=== PATIENT | female | born 2000 | race African-American/Black ===

== ENCOUNTER 2018-01-30 17:32 | Emergency (ER) | payer SELFPAY ==
[~2018-01-30] VITALS: Ht 167.6 cm; Wt 68.9 kg
--- NOTE | 2018-01-30 18:00 | NUR ---
PT BIB [facility], C/O ANXIETY 40mins PA, -SI. ALERT AND ORIENTED X 4, VERBALLY RESPONSIVE AND ABLE TO MAKE NEEDS KNOWN. ON ROOM AIR, BREATHING EVENLY AND UNLABORED. DENIES ANY PAIN AT THIS TIME. KEPT COMFORTABLE, WILL COTINUE TO MONITOR ACCORDINGLY.
[2018-01-30 18:11] LABS: BASOPHILS % (AUTO) 0.6 % (0.0-2.0); EOSINOPHILS % (AUTO) 0.4 % (0.0-6.0); HEMATOCRIT 39 % (33-45); HEMOGLOBIN 12.9 g/dL (11.5-14.8); LYMPHOCYTES # (AUTO) 1.2 /CMM (0.8-4.8); LYMPHOCYTES % (AUTO) 23.8 % (20.0-44.0); MEAN CORPUSCULAR HGB CONC 33 g/dl (31.0-36.0); MEAN CORPUSCULAR VOLUME 91 fL (82-100); MONOCYTES # (AUTO) 0.4 /CMM (0.1-1.30); MONOCYTES % (AUTO) 7.9 % (2.0-12.0); NEUTROPHILS # (AUTO) 3.5 /CMM (1.8-8.9); NEUTROPHILS % (AUTO) 67.3 % (43.0-81.0); PLATELET COUNT (AUTO) 304 /CMM (150-450); RED BLOOD CELL COUNT(AUTO) 4.27 MIL/uL (4.0-5.2); WHITE BLOOD COUNT (AUTO) 5.1 K/uL (4.3-11.0)
[2018-01-30] MEDS ORDERED: LORAZEPAM 1 MG TABLET ONE (18:16)
[2018-01-30] MEDS: LORAZEPAM 1 MG TABLET PO ONE (18:19)
[2018-01-30 18:31] LABS: APPEARANCE,URINE SL CLOUDY (CLEAR); BILIRUBIN,URINE NEGATIVE (NEGATIVE); BLOOD, URINE TRACE Ery/uL (NEGATIVE); COLOR,URINE YELLOW (YELLOW); KETONES,URINE NEGATIVE (NEGATIVE); LEUKOCYTE ESTERASE ,URINE NEGATIVE (NEGATIVE); NITRITE, URINE NEGATIVE (NEGATIVE); PROTEIN,URINE 2+ mg/dl (NEGATIVE); UGLUCOSE NEGATIVE (NEGATIVE)
[2018-01-30 18:33] LABS: ALANINE AMINOTRANSFERASE 72 U/L (12-78); ALBUMIN 3.4 g/dL (3.4-5.0); ALCOHOL, BLOOD 14 mg/dL (0-0); ALKALINE PHOSPHATASE 79 U/L (46-116); ASPARTATE AMINOTRANSFERASE 53 U/L (15-37); BILIRUBIN,DIRECT 0.1 mg/dL (0.0-0.2); BILIRUBIN,TOTAL 0.4 mg/dL (0.2-1.0); CALCIUM, SERUM 8.8 mg/dL (8.5-10.1); CARBON DIOXIDE 27 mmol/L (21-32); CHLORIDE 105 mmol/L (98-107); CREATININE 0.9 mg/dL (0.6-1.3); GLUCOSE 78 mg/dL (74-106); POTASSIUM 3.6 mmol/L (3.5-5.1); SODIUM SERUM 142 mmol/L (136-145); TOTAL PROTEIN, SERUM 7.4 g/dL (6.4-8.2); UREA NITROGEN, BLOOD 9 mg/dL (7-18)
[2018-01-30 18:36] LABS: ACETAMINOPHEN < 2 ug/ml (10-30); SALICYLATE < 2.8 mg/dL (2.8-20.0)
[2018-01-30 18:41] LABS: MUCUS,URINE Moderate /LPF (None Seen); SQUAMOUS EPITHELIAL CELL,UR Many /HPF (None Seen)
[2018-01-30 18:42] LABS: BACTERIA,URINE Few /HPF (None Seen); RBC,URINE 0-2 /HPF (0-2); WBC,URINE 0-2 /HPF (0-3)
--- NOTE | 2018-01-30 19:16 | NUR ---
ENDORSED TO DOROTHY FOX FOR GRACE
--- NOTE | 2018-01-30 19:35 | NUR ---
Patient is resting comfortably in bed with eyes closed. Easily aroused. VSS
--- NOTE | 2018-01-30 21:26 | NUR ---
Patient discharged to home in stable condition. Written and verbal after care instructions given. Patient verbalizes understanding of instruction. PT AMBULATORY WITH STEADY GAIT.
[2018-01-30 21:28] VITALS: BP 122/83
== END 2018-01-30 21:32 | disposition home or self-care (01) ==
LOC: ER 17:35
DX: F43.22 Adjustment disorder with anxiety (principal); F12.90 Cannabis use, unspecified, uncomplicated; F32.9 Major depressive disorder, single episode, unspecified
CPT/HCPCS: 36415; 80048-TC; 80076-TC; 80305; 81000-TC; 84703-TC; 85025-TC; A4606; G0480; Z7610

== ENCOUNTER 2019-04-18 00:05 | Emergency (ER) | payer SELFPAY ==
[~2019-04-18] VITALS: Ht 163.8 cm; Wt 65.8 kg
--- NOTE | 2019-04-18 00:31 | NUR ---
BIBAURELIAPD. TO ER BED 12. INTOXICATED - ADMITS TO DRINKING. NO RESP DISTRESS/ AMBULATORY. BROUGHT IN FOR FOUND WANDERING IN AN APT COMPLEX EXHIBITING WEIRD BEHAVIOR AND VERBALIZING THAT "SHE IS FEELING HURTING OTHER". UPON ASSESSMENT, PT DENIES SI AND HI, STATES" I ONNLY SAID THAT SO THEY DONT BRING ME TO GROUP HOME". DENIES HALLUCINATIONS. PT IS GOWN AND BELONGING KEPT . 1:1 SITTER AT BEDSIDE. MD AT BEDSIDE FOR EVAL.
[2019-04-18] MEDS ORDERED: IV D5/ 0.9% NACL 1,000 ML IV ONE (00:34)
--- NOTE | 2019-04-18 00:50 | NUR ---
IV LINE OBTAINED ON THE R AC 20G. BLOOD DRAWN, URINE COLLECTEDAND GIVEN TO TECHNICAL ILLUSTRATOR AT BEDSIDE. FOOD AND DRINK PROVIDED.
[2019-04-18 00:51] LABS: BASOPHILS # (AUTO) 0.1 /CMM (0.0-0.2); EOSINOPHILS % (AUTO) 0.2 % (0.0-6.0); HEMATOCRIT 44 % (33-45); HEMOGLOBIN 14.7 g/dL (11.5-14.8); LYMPHOCYTES # (AUTO) 3.7 /CMM (0.8-4.8); LYMPHOCYTES % (AUTO) 61.6 % (20.0-44.0); MEAN CORPUSCULAR HGB CONC 33 g/dl (31.0-36.0); MEAN CORPUSCULAR VOLUME 92 fL (82-100); MONOCYTES # (AUTO) 0.2 /CMM (0.1-1.30); MONOCYTES % (AUTO) 3.1 % (2.0-12.0); NEUTROPHILS % (AUTO) 34.1 % (43.0-81.0); PLATELET COUNT (AUTO) 440 /CMM (150-450); RED BLOOD CELL COUNT(AUTO) 4.82 MIL/uL (4.0-5.2)
[2019-04-18 00:52] LABS: APPEARANCE,URINE Clear (CLEAR); BILIRUBIN,URINE Negative (NEGATIVE); BLOOD, URINE Trace-intact Ery/uL (NEGATIVE); COLOR,URINE Yellow (YELLOW); KETONES,URINE Negative (NEGATIVE); LEUKOCYTE ESTERASE ,URINE Negative (NEGATIVE); NITRITE, URINE Negative (NEGATIVE); PH,URINE 6.5 (5.0-8.0); PROTEIN,URINE 30 mg/dl (NEGATIVE); UGLUCOSE Negative (NEGATIVE); UROBILINOGEN,URINE 0.2 EU/dL (0.2)
[2019-04-18] MEDS ORDERED: LORAZEPAM INJ 2 MG/ML VIAL ONE (01:04)
[2019-04-18 01:06] LABS: CALCIUM, SERUM 8.8 mg/dL (8.5-10.1); CREATININE 0.9 mg/dL (0.6-1.3); POTASSIUM 4.1 mmol/L (3.5-5.1)
[2019-04-18 01:13] LABS: ALBUMIN 4.5 g/dL (3.4-5.0); BILIRUBIN,DIRECT 0.1 mg/dL (0.0-0.2); BILIRUBIN,TOTAL 0.2 mg/dL (0.2-1.0); SALICYLATE 1.3 mg/dL (2.8-20.0); TOTAL PROTEIN, SERUM 8.5 g/dL (6.4-8.2)
[2019-04-18 01:15] LABS: BACTERIA,URINE Rare /HPF (None Seen); RBC,URINE 0-2 /HPF (0-2); SQUAMOUS EPITHELIAL CELL,UR Rare /HPF (None Seen); WBC,URINE 0-2 /HPF (0-3)
[2019-04-18 01:22] LABS: THYROID STIMULATING HORMONE 0.626 uIU/mL (0.358-3.74)
[2019-04-18] MEDS ORDERED: LORAZEPAM INJ 2 MG/ML VIAL IV ONE (01:30)
--- NOTE | 2019-04-18 02:09 | NUR ---
PT IN BED SLEEPING. NAD
--- NOTE | 2019-04-18 04:05 | NUR ---
PT IN BED SLEEPING COMFORTABLE
--- NOTE | 2019-04-18 06:56 | NUR ---
PT IS AWAKE. WALKING ON STEADY GAIT. NOT CLINICALLY INTOXICATED
--- NOTE | 2019-04-18 07:36 | NUR ---
Patient discharged to home in stable condition. Written and verbal after care instructions given. Patient verbalizes understanding of instruction. Pt ambulatory with a steady gait IV removed. Catheter intact and site benign. Pressure and 4x4 applied to site. No bleeding noted.
[2019-04-18 07:38] VITALS: BP 113/78
--- NOTE | 2019-04-18 07:38 | NUR ---
PT DENIES BEING HOMELESS. PICKED UP BY A FRIEND
== END 2019-04-18 07:38 | disposition home or self-care (01) ==
LOC: ER 00:07
DX: F10.129 Alcohol abuse with intoxication, unspecified (principal); F41.9 Anxiety disorder, unspecified; F32.9 Major depressive disorder, single episode, unspecified; Z59.0 Homelessness; Y90.8 Blood alcohol level of 240 mg/100 ml or more
CPT/HCPCS: 36415; 80048; 80076; 80305; 80307; 80329; 81001; 84443; 84703; 85025; 96374; 99285; G0480; J2060; J7042; 81000-TC; J7030